=== PATIENT | male | born 1955 | race Caucasian/White ===

== ENCOUNTER 2017-10-02 10:50 | Observation (INO) | payer OTHER ==
[2017-10-02] VITALS (18 sets, daily range): BP systolic 67–157; BP diastolic 64–84; PULSE 82–94; RESP 7–18; Ht 180.3 cm; Wt 75.7 kg
[~2017-10-02] VITALS: Ht 180.3 cm; Wt 75.7 kg
[2017-10-02] MEDS ORDERED: ALPR1TAB2 PO (11:16)
[2017-10-02] MEDS ORDERED: LACTATED RINGER'S 1,000 ML IV* SCH (12:00)
[2017-10-02] MEDS ORDERED: CEFAZOLIN 2 GM/50 ML (PMX) 50 ML IVPB SCH (12:00)
[2017-10-02] MEDS ORDERED: THROMBIN 5000 UNIT VIAL ONE (12:02)
[2017-10-02] MEDS ORDERED: GELATIN SIZE 100 SPONGE ONE (12:02)
[2017-10-02] MEDS ORDERED: BUPIVACAINE 0.5%/EPI (SDV) 30 ML INJ ONE (12:02)
[2017-10-02] MEDS ORDERED: POLYMYXIN/BACITRACIN 1L IRRIG ONE (12:02)
[2017-10-02] MEDS ORDERED: METOCLOPRAMIDE 10 MG INJ ONE (12:06)
[2017-10-02] MEDS ORDERED: MIDAZOLAM 1 MG/ML 2 ML INJ ONE (12:06)
--- NOTE | 2017-10-02 12:10 | HPN ---
Date/Time of Note Date/Time of Note DATE: 10/02/17 TIME: 12:10 Interval H&P Admission Note Pt. seen H&P reviewed: No system changes TREE MITCHELL MD Oct 02, 2017 12:10
[2017-10-02] MEDS ORDERED: SUCCINYLCHOLINE CHLORIDE 100 MG/5 ML SYG IV ONE (12:22)
[2017-10-02] MEDS ORDERED: CEFAZOLIN 1 GM INJ ONE (12:22)
[2017-10-02] MEDS ORDERED: PROPOFOL 20 ML ONE (12:22)
[2017-10-02] MEDS ORDERED: ROCURONIUM 50 MG INJ ONE (12:22)
[2017-10-02] MEDS ORDERED: FENTAnyl 50 MCG/ML VIAL ONE (12:27)
[2017-10-02] MEDS ORDERED: HYDROmorphONE 2 MG/ML SYG ONE (12:33)
[2017-10-02] MEDS ORDERED: ACETAMINOPHEN 1000MG/100ML IV 100 ML ONE (12:49)
[2017-10-02] MEDS ORDERED: HYDROmorphONE (0.2 MG/ML) 10ML SYG IV PRN ×2 (14:00)
[2017-10-02] MEDS ORDERED: MEPERIDINE 25 MG INJ IV PRN (14:00)
[2017-10-02] MEDS ORDERED: ONDANSETRON 4 MG INJ IV PRN (14:00)
[2017-10-02] MEDS ORDERED: DIPHENHYDRAMINE 50 MG INJ IV PRN (14:00)
[2017-10-02] MEDS ORDERED: TRIAMCINOLONE ACET 40 MG/ML INJ ONE (14:52)
[2017-10-02] MEDS ORDERED: ONDANSETRON 4 MG INJ ONE (15:29)
[2017-10-02] MEDS ORDERED: NALOXONE (0.4 MG/ML) INJ IV PRN (15:30)
[2017-10-02] MEDS ORDERED: ACETAMINOPHEN 325 MG TAB PO PRN (15:30)
[2017-10-02] MEDS ORDERED: OXYCODONE/ACETAMINOPHEN (5/325) TAB PO PRN (15:30)
[2017-10-02] MEDS ORDERED: NACL 0.9% 3 ML SYG IV SCH (15:30)
--- NOTE | 2017-10-02 15:35 | OPR ---
Date/Time of Note Date/Time of Note DATE: 10/02/17 TIME: 15:25 Operative Report Free Text/Dictation DATE OF OPERATION: PREOPERATIVE DIAGNOSES: 1. Left sided L4-L5 spinal stenosis with Left L5 radiculopathy POSTOPERATIVE DIAGNOSES: 1. Left sided L4-L5 spinal stenosis with Left L5 radiculopathy OPERATION PERFORMED: 2. Left L4-L5 laminectomy, medial facetectomy, and foraminotomy SURGEON: Tree Mitchell MD HYDROMETER CALIBRATOR: Morgan Sheets MD ANESTHESIA: General endotracheal ESTIMATED BLOOD LOSS: 20 mL SURGICAL INDICATION: The patient is a 72 year-old male who presents with a several month history of worsening left lower extremity pain and weakness with a left sided L5 radiculopathy. He was found to have lateral recess stenosis at L4-L5 which correlated well with his symptoms. The patient had failed conservative treatment. Risks, benefits, and alternatives to a L4-5 left sided decompression were explained to the patient and they wished to proceed. Risks explained included but were not exclusive of bleeding, infection, cauda equina syndrome, nerve injury, dural tear, iatrogenic instability requiring fusion, recurrent disc herniation, fracture, vascular injury, bowel injury, stroke, heart attack and pulmonary embolism. DESCRIPTION OF TECHNIQUE: The patient was identified in the preoperative area and taken to the operating room. Rapid induction of general endotracheal anesthesia was performed. The patient was given 2 g of cefazolin for prophylaxis. The patient was then placed in the prone position on the Pawan frame on a Marko flat top table with all prominences well padded. The back was prepped and draped in the usual sterile manner. Using a spinal needle and intraoperative fluoroscopy, the appropriate level was clearly identified (L4-L5) . The skin was injected using 0.5% Marcaine with epinephrine. Longitudinal midline incision was then created using a 10 blade. Further dissection through soft tissue was performed using electrocautery down to the left spinous processes.Dissection was taken down the lamina and over the facet joint capsule. A self-retaining retractor was applied. Again, intraoperative fluoroscopy confirmed the level.The microscope was brought into use for microdissection. The left L4 laminae was resected using a high-speed bur. A small portion of the medial facet and the bone overlying the foramen were also meticulously resected using a high speed angie and a series of Kerrison rongeurs. A series of Kerrison rongeurs were then used to resect the ligamentum flavum. Care was taken to protect the thecal sac throughout the decompressive procedure. Palpation with a ball-tip probe did not reveal any further stenosis in the central, subarticular, or foraminal areas. The left L4 and L5 pedicles were palpated using a raúl to ensure a pedicle to pedicle decompression. The traversing L5 nerve root was directly visualized and noted to be decompressed. The cephalad and caudad extent of the decompression were also confirmed using ball-tip probes and intraoperative fluoroscopy. Meticulous attention was then paid towards hemostasis using FloSeal as well as Gelfoam and thrombin. Care was taken to remove all FloSeal and Gelfoam prior to wound closure. The fascia was then closed using 1 Vicryl in an interrupted fashion. Subcutaneous tissue was closed using 2-0 Vicryl in an interrupted fashion. The skin was closed using a running 4-0 Monocryl stitch. The wound was dressed using Dermabond and a 4x4 sterile gauze. The patient was returned to the supine position. He was extubated immediately postoperatively and taken to the recovery room in stable condition. Procedure Date: Oct 02, 2017 Preoperative Diagnosis 1. Left sided L4-L5 spinal stenosis with Left L5 radiculopathy Postoperative Diagnosis 1. Left sided L4-L5 spinal stenosis with Left L5 radiculopathy Surgeon see signature line Proof Tester Dr. Sheets Anesthesia Type: general Estimated Blood Loss: 10 - 50 ml's Transfusion none Specimen None Grafts/Implants none Complications none Pt Condition Post Procedure: stable Disposition: PACU Procedure Description DESCRIPTION OF TECHNIQUE: The patient was identified in the preoperative area and taken to the operating room. Rapid induction of general endotracheal anesthesia was performed. The patient was given 2 g of cefazolin for prophylaxis. The patient was then placed in the prone position on the Pawan frame on a Marko flat top table with all prominences well padded. The back was prepped and draped in the usual sterile manner. Using a spinal needle and intraoperative fluoroscopy, the appropriate level was clearly identified (L4-L5) . The skin was injected using 0.5% Marcaine with epinephrine. Longitudinal midline incision was then created using a 10 blade. Further dissection through soft tissue was performed using electrocautery down to the left spinous processes.Dissection was taken down the lamina and over the facet joint capsule. A self-retaining retractor was applied. Again, intraoperative fluoroscopy confirmed the level.The microscope was brought into use for microdissection. The left L4 laminae was resected using a high-speed bur. A small portion of the medial facet and the bone overlying the foramen were also meticulously resected using a high speed angie and a series of Kerrison rongeurs. A series of Kerrison rongeurs were then used to resect the ligamentum flavum. Care was taken to protect the thecal sac throughout the decompressive procedure. Palpation with a ball-tip probe did not reveal any further stenosis in the central, subarticular, or foraminal areas. The left L4 and L5 pedicles were palpated using a raúl to ensure a pedicle to pedicle decompression. The traversing L5 nerve root was directly visualized and noted to be decompressed. The cephalad and caudad extent of the decompression were also confirmed using ball-tip probes and intraoperative fluoroscopy. Meticulous attention was then paid towards hemostasis using FloSeal as well as Gelfoam and thrombin. Care was taken to remove all FloSeal and Gelfoam prior to wound closure. The fascia was then closed using 1 Vicryl in an interrupted fashion. Subcutaneous tissue was closed using 2-0 Vicryl in an interrupted fashion. The skin was closed using a running 4-0 Monocryl stitch. The wound was dressed using Dermabond and a 4x4 sterile gauze. The patient was returned to the supine position. He was extubated immediately postoperatively and taken to the recovery room in stable condition. TREE MITCHELL MD Oct 02, 2017 15:35
[2017-10-02] MEDS: HYDROmorphONE (0.2 MG/ML) 10ML SYG IV PRN ×3 (15:55→16:36)
--- NOTE | 2017-10-02 17:28 | CONS ---
Date/Time of Note Date/Time of Note DATE: 10/02/17 TIME: 17:23 Assessment/Plan Assessment/Plan Problems: (1) S/P lumbar microdiscectomy Onset Date: ~ 10/02/2017 Status: Acute Comment: The patient is immediately status post surgery and doing well. He is recuperated from anesthesia and is able be fully conversant. Will observe him carefully and progress with physical therapy. My estimation he has good rehabilitation potential. (2) Ocular migraine Status: Chronic Comment: Noted. Please note with given his history of anxiety disorder if this were a frequent problem that he can be treated with a try cyclic antidepressant low-dose which would help with this. However he is not having this since he had his cervical spine surgery which removed the impetus i.e. stimulus for the migraines. This is noted (3) Anxiety disorder Status: Chronic Comment: Noted. He will be continued on his benzodiazepine on a as needed basis. 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 Failed all conservative attempts at treatment. He is bothered by peripheral neuropathy that was chronic and constant with discomfort. Constitutional: no complaints (No fevers chills or sweats) Eyes: no complaints ENT: no complaints Respiratory: no complaints (No cough no dyspnea) Cardiovascular: no complaints (No chest pain no exertional complaints) Gastrointestinal: no complaints Genitourinary: no complaints Musculoskeletal: back pain Skin: no complaints Neurologic: other (Lower extremity numbness) Past Medical History Medical History: other (Lumbar spinal stenosis; ocular migraine syndrome previously labeled as amaurosis fugax; chronic pain syndrome;) Past Surgical History Past Surgical Hx: other (Status post vasectomy; status post cervical spine fusion; status post bilateral shoulder arthroscopy; status post cataract extraction and intraocular lens implantation; status post tonsillectomy) Family History Significant Family History: lung disease Social History 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 Alcohol Use: none Smoking Status: Never smoker Drug Use: none Exam/Review of Systems Vital Signs Vitals Vital Signs Date Time Temp Pulse Resp B/P Pulse Ox O2 Delivery O2 Flow Rate FiO2 10/02/17 16:52 84 8 134/65 95 Room Air 10/02/17 15:46 97.9 Exam Constitutional: alert, oriented Eyes: EOMI, PERRL, nl conjunctiva, nl lids, nl sclera ENMT: mucosa pink and moist, nl external ears & nose, nl lips & teeth, nl nasal mucosa & septum Neck: non-tender, supple Respiratory: clear to auscultation, normal air movement Cardiovascular: nl pulses, regular rate and rhythm Gastrointestinal: nl liver, spleen, non-tender, soft Musculoskeletal: nl extremities to inspection, other (Immediately postop nonambulatory) Extremities: normal pulses Neurological: HEAD GREASE MAKER II-XII intact, nl mental status, nl speech, nl strength Skin: nl turgor, rash or lesions Medications Medications Outpatient medications; Adderall 20 mg every morning; alprazolam 1-2 mg every 12 hours as needed; [place] as needed Current Medications Lactated Ringer's 1,000 ml @ 0 mls/hr Q0M IV* ; Start 10/02/17 at 12:00; Stop 10/02/17 at 23:00 Cefazolin Sodium (Ancef 1 Gm/50 ml (Pmx)) 50 ml @ 100 mls/hr Q6 IVPB ; Start 10/02/17 at 18:00; Stop 10/03/17 at 12:29 Prochlorperazine (Compazine) 10 mg Q4H PRN PO NAUSEA AND/OR VOMITING; Start at 15:30 Ondansetron HCl (Zofran Inj) 4 mg Q6H PRN IV NAUSEA AND/OR VOMITING; Start at 15:30 Docusate Sodium (Colace) 100 mg BID PO ; Start 10/03/17 at 09:00 Acetaminophen (Tylenol Tab) 650 mg Q4H PRN PO TEMP GREATER THAN 101F OR PERRY; Start 10/02/17 at 15:30 Naloxone HCl (Narcan) 0.2 mg Q2M PRN IV RR 8 BREATHS/MIN OR LESS; Start at 15:30 Oxycodone/ Acetaminophen (Percocet (5/ 325)) 1 tab Q4H PRN PO PAIN; Start at 15:30 Oxycodone/ Acetaminophen (Percocet (5/ 325)) 2 tab Q4H PRN PO SEVERE PAIN LEVEL 7-10; Start 10/02/17 at 15:30 Hydromorphone HCl (Dilaudid) 1 mg Q4H PRN IV SEVERE PAIN LEVEL 7-10; Start at 15:30 MUNA SOTO MD Oct 02, 2017 17:28
[2017-10-02] MEDS ORDERED: ALPRAZOLAM 1 MG TAB PO PRN (17:30)
[2017-10-02] MEDS: CEFAZOLIN 1 GM/50 ML (PMX) 50 ML IVPB SCH ×2 (18:43→23:32)
[2017-10-02] MEDS: ONDANSETRON 4 MG INJ IV PRN ×2 (18:44→23:10)
[2017-10-02] MEDS: HYDROmorphONE 1 MG/ML SYG IV PRN ×2 (19:45→23:02)
[2017-10-03 00:36] VITALS: BP 130/72; RESP 18
[2017-10-03] MEDS: ONDANSETRON 4 MG INJ IV PRN (01:37)
[2017-10-03] MEDS: PROCHLORPERAZINE 10 MG TAB PO PRN ×2 (02:57→10:41)
[2017-10-03] MEDS: HYDROmorphONE 1 MG/ML SYG IV PRN (03:39)
[2017-10-03] MEDS: CEFAZOLIN 1 GM/50 ML (PMX) 50 ML IVPB SCH ×2 (05:30→12:00)
[2017-10-03] MEDS: OXYCODONE/ACETAMINOPHEN (5/325) TAB PO PRN ×2 (06:51→13:22)
[2017-10-03] MEDS ORDERED: METHOCARBAMOL 500 MG TAB PO PRN (08:30)
[2017-10-03 08:43] VITALS: BP 117/63; RESP 18
[2017-10-03] MEDS ORDERED: DOCUSATE SODIUM 100 MG CAP PO SCH (09:00)
--- NOTE | 2017-10-03 12:08 | PDOCDIS ---
Discharge Instructions CONDITION Patient Condition: Good HOME CARE INSTRUCTIONS: Diet Instructions: Regular ACTIVITY: Activity Restrictions: Avoid heavy lifting Bathing Restrictions: Shower FOLLOW UP/APPOINTMENTS Follow-up Plan Follow-up with Dr. Mitchell in 2 weeks TREE MITCHELL MD Oct 03, 2017 12:08
--- NOTE | 2017-10-03 13:20 | CONS ---
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 Failed all conservative attempts at treatment. He is bothered by peripheral neuropathy that was chronic and constant with discomfort. Problems: (1) S/P lumbar microdiscectomy Onset Date: ~ 10/02/2017 Status: Acute Comment: Patient has done well postoperatively without any apparent complications. At this time he is stable for discharge. (2) Anxiety disorder Status: Chronic Comment: Adequately controlled. Qualifiers: Anxiety disorder type: generalized anxiety disorder Qualified Code: F41.1 - Generalized anxiety disorder Consultation Date/Type/Reason Admit Date/Time Oct 02, 2017 at 15:20 Initial Consult Date 10/02/17 Type of Consultation: Internal medicine Reason for Consultation Postoperative assistance after lumbar surgery Referring Provider: TREE MITCHELL MD 24 HR Interval Summary Free Text/Dictation Patient reports he has some back pain but in general is done well and has been very active with physical therapy Constitutional: no complaints Detailed Summary Respiratory: no complaints Cardiovascular: no complaints Gastrointestinal: no complaints Genitourinary: no complaints Exam/Review of Systems Vital Signs Vitals Vital Signs Date Time Temp Pulse Resp B/P Pulse Ox O2 Delivery O2 Flow Rate FiO2 10/03/17 08:43 98.4 78 18 117/63 97 10/02/17 19:15 Room Air Intake and Output 10/02/17 10/02/17 10/03/17 15:00 23:00 07:00 Intake Total 1550 ml 600 ml Output Total 10 ml 600 ml Balance 1540 ml 0 ml Exam Constitutional: alert, oriented Neck: non-tender, supple Respiratory: clear to auscultation, normal air movement Cardiovascular: nl pulses, regular rate and rhythm Medications Medications Current Medications Prochlorperazine (Compazine) 10 mg Q4H PRN PO NAUSEA AND/OR VOMITING Last administered on 10/03/17 10:41; Admin Dose 10 MG; Start 10/02/17 at 15:30 Ondansetron HCl (Zofran Inj) 4 mg Q6H PRN IV NAUSEA AND/OR VOMITING Last administered on 10/03/17 01:37; Admin Dose 4 MG; Start 10/02/17 at 15:30 Docusate Sodium (Colace) 100 mg BID PO Last administered on 10/03/17 08:17; Admin Dose 100 MG; Start 10/03/17 at 09:00 Acetaminophen (Tylenol Tab) 650 mg Q4H PRN PO TEMP GREATER THAN 101F OR PERRY; Start 10/02/17 at 15:30 Naloxone HCl (Narcan) 0.2 mg Q2M PRN IV RR 8 BREATHS/MIN OR LESS; Start at 15:30 Oxycodone/ Acetaminophen (Percocet (5/ 325)) 1 tab Q4H PRN PO PAIN; Start at 15:30 Oxycodone/ Acetaminophen (Percocet (5/ 325)) 2 tab Q4H PRN PO SEVERE PAIN LEVEL 7-10 Last administered on 10/03/17 06:51; Admin Dose 2 TAB; Start 10/02 at 15:30 Hydromorphone HCl (Dilaudid) 1 mg Q4H PRN IV SEVERE PAIN LEVEL 7-10 Last administered on 10/03/17 03:39; Admin Dose 1 MG; Start 10/02/17 at 15:30 Alprazolam (Xanax) 1 mg BID PRN PO ANXIETY Last administered on 10/03/17 01: 37; Admin Dose 1 MG; Start 10/02/17 at 17:30 Methocarbamol (Robaxin) 500 mg Q8 PRN PO MUSCLE SPASMS Last administered on 09:38; Admin Dose 500 MG; Start 10/03/17 at 08:30 Influenza Virus Vaccine (Fluzone) 0.5 ml ONCE ONCE IM* ; Start 10/03/17 at 16: 00; Stop 10/03/17 at 16:01 MUNA SOTO MD Oct 03, 2017 13:20
[2017-10-03] MEDS ORDERED: INFLUENZA VIRUS VACCINE 0.5 ML SYG IM* ONE (16:00)
== END 2017-10-03 13:42 | disposition home or self-care (01) ==
LOC: SDS 10:50 → EDBD 12:30 → SDS 15:20 → REC 15:20 → MS1 17:10
PROVIDERS: ADMIT Orthopaedic Surgery; ATTEND Orthopaedic Surgery
DX: M48.061 Spinal stenosis, lumbar region without neurogenic claudication (principal); M54.16 Radiculopathy, lumbar region; F41.9 Anxiety disorder, unspecified; G43.809 Other migraine, not intractable, without status migrainosus; Z88.0 Allergy status to penicillin
CPT/HCPCS: 63047; 72100; 97162; 97163; 99217; G0378; J0131; J0690; J1170; J2250; J2405; J2765; J3010; 90686; J1200

== ENCOUNTER 2018-06-08 10:37 | Observation (INO) | END 2018-06-09 15:45 | disposition home or self-care (01) ==